=== PATIENT | male | born 1955 | race American Indian/Alaskan Native ===

== ENCOUNTER 2020-06-07 11:53 | Emergency (ER) | payer MEDICARE ==
[2020-06-07 12:48] VITALS: BP 127/95
== END 2020-06-07 13:00 | disposition left against medical advice (07) ==
LOC: ED 11:53
DX: M79.10 Myalgia, unspecified site (principal); Z53.21 Procedure and treatment not carried out due to patient leaving prior to being seen by health care provider

== ENCOUNTER 2020-11-30 05:53 | Observation (INO) | payer MEDICARE ==
[2020-11-30] MEDS ORDERED: MORPHINE 2 MG/1 ML INJ IV ONE (06:02)
[2020-11-30] MEDS ORDERED: NITROGLYCERIN 0.4 MG TAB SUBL SL PRN (06:03)
[2020-11-30] MEDS ORDERED: ONDANSETRON 4 MG/2 ML INJ IV ONE (06:03)
--- NOTE | 2020-11-30 06:41 | XRay Report ---
CHEST 1 VIEW INDICATION / CLINICAL INFORMATION: Chest Pain. FINDINGS: SUPPORT DEVICES: None. HEART / MEDIASTINUM: No significant abnormality. LUNGS / PLEURA: No significant pulmonary or pleural abnormality. No pneumothorax. ADDITIONAL FINDINGS: No significant additional findings. IMPRESSION: 1. No acute findings. Signer Name: Son Segura MD Signed: 11/30/2020 6:37 AM Workstation Name: [id number]
[2020-11-30] MEDS ORDERED: NITROGLYCERIN 2% OINT 1 GM TP ONE (06:49)
[2020-11-30] MEDS ORDERED: ASPIRIN 325 MG TAB PO ONE (06:49)
[2020-11-30] MEDS ORDERED: fentaNYL 100 MCG/2 ML INJ IV ONE (06:49)
--- NOTE | 2020-11-30 06:53 | Emergency Department Report ---
HPI - General Time Seen by Provider: 11/30/20 06:38 - HPI HPI: Room 24 The patient is a 65-year-old male present with a chief complaint of chest pain. Patient states he was awakened around midnight today with sharp substernal chest pain has been intermittent and associated with shortness of breath. Patient denies nausea/vomiting or diaphoresis. Patient currently gets his chest pain score of 8/10. Patient states his last stress test was over 5 years ago and he has never had a cardiac catheterization ED Past Medical Hx - Past Medical History Hx Hypertension: Yes Hx Heart Attack/AMI: Yes Hx GERD: Yes Hx Arthritis: Yes Additional medical history: HIGH CHOLESTEROL - Surgical History Hx Pacemaker: Yes Additional Surgical History: LEFT ROTATOR CUFF REPAIR. RIGHT HIP REPLACEMENT - Family History Family history: no significant - Social History Smoking Status: Former Smoker (None x20 years) Substance Use Type: None (Denies illicit drug use), Alcohol (Occasional) - Medications Home Medications: Home Medications Medication Instructions Recorded Confirmed Last Taken Type HYDROcodone/APAP 5-325 [[place] 1 each PO Q6HR PRN #15 tablet 07/15/14 Unknown Rx 5/325] Ibuprofen [Motrin] 800 mg PO Q8H #30 tablet 07/15/14 Unknown Rx Albuterol Mdi (or & Nicu Only) 2 puff IH QID PRN #1 inhalation 11/03/14 Unknown Rx [ProAir HFA Inhaler] Azithromycin [Zithromax Z-INES] 0 mg PO DAILY #6 tab 11/03/14 Unknown Rx Promethazine /Codeine 5 ml PO Q6H PRN #120 ml 11/03/14 Unknown Rx [Phenergan/Codeine 6.25-10 mg/5 ml] ED Review of Systems ROS: Stated complaint: CHEST PAIN Other details as noted in HPI Constitutional: denies: diaphoresis Eyes: denies: eye pain ENT: denies: throat pain Respiratory: shortness of breath Cardiovascular: chest pain Endocrine: no symptoms reported Gastrointestinal: denies: nausea, vomiting Genitourinary: denies: dysuria Musculoskeletal: denies: back pain Neurological: denies: headache Physical Exam - Physical Exam Vital Signs: Vital Signs 11/30/20 06:10 Pulse Rate 72 Blood Pressure 137/70 Physical Exam: GENERAL: The patient is well-developed well-nourished male lying on stretcher not appearing to be in acute distress. [] HEENT: Normocephalic. Atraumatic. Extraocular motions are intact. Patient has moist mucous membranes. NECK: Supple. Trachea midline CHEST/LUNGS: Clear to auscultation. There is no respiratory distress noted. HEART/CARDIOVASCULAR: Regular. There is no tachycardia. There is no gallop rub or murmur. ABDOMEN: Abdomen is soft, nontender. Patient has normal bowel sounds. There is no abdominal distention. SKIN: There is no rash. There is no edema. There is no diaphoresis. NEURO: The patient is awake, alert, and oriented. The patient is cooperative. The patient has no focal neurologic deficits. The patient has normal speech. GCS 15 MUSCULOSKELETAL: There is no evidence of acute injury. ED Course Vital Signs 11/30/20 06:10 Pulse Rate 72 Blood Pressure 137/70 ED Medical Decision Making - Lab Data Result diagrams: 11/30/20 06:52 11/30/20 06:52 Laboratory Tests 11/30/20 11/30/20 11/30/20 06:52 06:52 06:52 WBC 6.1 RBC 3.93 Hgb 12.9 Hct 37.4 MCV 95 H MCH 33 H MCHC 34 RDW 12.5 L Plt Count 191 Lymph % (Auto) 34.1 [place] % (Auto) 8.9 H Eos % (Auto) 0.9 Baso % (Auto) 0.4 Lymph # (Auto) 2.1 [place] # (Auto) 0.5 Eos # (Auto) 0.1 Baso # (Auto) 0.0 Seg Neutrophils % 55.7 Seg Neutrophils # 3.4 PT 12.6 INR 0.89 APTT 23.5 L Sodium 134 L Potassium 4.0 Chloride 96.5 L Carbon Dioxide 24 Anion Gap 18 BUN 19 Creatinine 1.0 Estimated GFR > 60 BUN/Creatinine Ratio 19 Glucose 407 H Calcium 8.6 Total Bilirubin 0.20 AST 21 ALT 22 Alkaline Phosphatase 130 H Troponin T < 0.010 Total Protein 7.0 Albumin 3.8 L Albumin/Globulin Ratio 1.2 - EKG Data -: EKG Interpreted by In EKG shows normal: sinus rhythm Rate: normal - EKG Data When compared to previous EKG there are: previous EKG unavailable Interpretation: other (EKG goes from sinus to paced rhythm) - Radiology Data Radiology results: report reviewed (Chest x-ray), image reviewed (Chest x-ray) interpreted by me: Chest x-ray-no definite focal infiltrates, no pneumothorax. [facility] [address] [place] [address] XRay Report Signed Patient: JIM SALAZAR MR#: [id number] : 1955 Acct:[id number] Age/Sex: 65 / M ADM Date: 11/30/20 Loc: ED Attending Dr: Ordering Physician: MARSHA AGUIAR MD Date of Service: 11/30/20 Procedure(s): XR chest 1V ap Accession Number(s): [id number] cc: MARSHA AGUIAR MD Fluoro Time In Minutes: CHEST 1 VIEW INDICATION / CLINICAL INFORMATION: Chest Pain. FINDINGS: SUPPORT DEVICES: None. HEART / MEDIASTINUM: No significant abnormality. LUNGS / PLEURA: No significant pulmonary or pleural abnormality. No pneumothorax. ADDITIONAL FINDINGS: No significant additional findings. IMPRESSION: 1. No acute findings. Signer Name: Son Segura MD Signed: 11/30/2020 6:37 AM Workstation Name: [id number] Transcribed By: Dictated By: Son Segura MD Electronically Authenticated By: Son Segura MD Signed Date/Time: 11/30/20636 DD/ 5 TD/TT: Print Cancel - Differential Diagnosis ACS, pericarditis, GERD Critical care attestation.: If time is entered above; I have spent that time in minutes in the direct care of this critically ill patient, excluding procedure time. ED Disposition Clinical Impression: Chest pain Disposition: ADMITTED INPATIENT Is pt being admited?: Yes Does the pt Need Aspirin: Yes Condition: Fair Instructions: Nonspecific Chest Pain, Adult Time of Disposition: 08:14 (Hospitalist notified (Dr Frye)) Heart Score - HEART Score History: Moderately suspicious EKG: Non-specific Age: > 65 Risk factors: > 3 risk factors or hx of atherosclerotic disease Troponin: < normal limit HEART Score: 6 - EKG Read Time Time EKG Completed: 06:09 EKG Read Time: 06:10
[2020-11-30 07:10] LABS: Basophils % (Auto) 0.4 % (0.0-1.8); Eosinophils # (Auto) 0.1 K/mm3 (0.0-0.4); Eosinophils % (Auto) 0.9 % (0.0-4.3); Hematocrit 37.4 % (35.5-45.6); Hemoglobin 12.9 gm/dl (11.8-15.2); Lymphocytes # (Auto) 2.1 K/mm3 (1.2-5.4); Lymphocytes % (Auto) 34.1 % (13.4-35.0); Mean Corpuscular HGB Conc 34 % (32-34); Mean Corpuscular Volume 95 fl (84-94); Monocytes # (Auto) 0.5 K/mm3 (0.0-0.8); Monocytes % (Auto) 8.9 % (0.0-7.3); Platelet Count 191 K/mm3 (140-440); Red Blood Count 3.93 M/mm3 (3.65-5.03); Red Cell Distribution Width 12.5 % (13.2-15.2)
[2020-11-30 07:34] LABS: Alanine Aminotransferase 22 units/L (7-56); Albumin 3.8 g/dL (3.9-5); BUN/Creatinine Ratio 19; Blood Urea Nitrogen 19 mg/dL (9-20); Calcium 8.6 mg/dL (8.4-10.2); Hemolysis Index 12
[2020-11-30 07:47] LABS: INR 0.89 (0.87-1.13)
[2020-11-30 07:48] LABS: Partial Thromboplastin Time 23.5 Sec. (24.2-36.6)
--- NOTE | 2020-11-30 08:35 | Electrocardiograph Report ---
[facility] Test Date: 2020-11-30 Test Time: 06:09:30 Pat Name: JIM SALAZAR Department: Room: Gender: M Trouble Dispatcher: BREONNA : 1955 Requested By: MARSHA AGUIAR Order Number: [id number] Reading MD: Esdras Akhtar Measurements Intervals [place] Rate: 65 P: MT: QRS: 55 QRSD: 86 T: -7 QT: 446 QTc: 456 Interpretive Statements Afib/flut and V-paced complexes No previous ECG available for comparison Electronically Signed On 11-30-2020 8:35:29 EDT by Esdras Akhtar
[2020-11-30] MEDS ORDERED: MORPHINE 4 MG/1 ML INJ IV PRN (11:24)
--- NOTE | 2020-11-30 11:39 | History and Physical Report ---
History of Present Illness Date of examination: 11/30/20 Date of admission: 11/30/20 08:50 Chief complaint: chest pain History of present illness: A 65-year-old male with past medical history of CHF, chronic back pain on every 2 months lumbar spinal injection, A. fib [on Eliquis], permanent pacemaker in situ, hypertension, diabetes mellitus type 2, dyslipidemia, GERD, received moderna Covid vaccine, presented to the hospital complaints of chest pain which has been intermittent for 1 month with located in the substernal region, sharp, occurs while eating or drinking with associated odynophagia and dysphagia, /, radiates to the epigastrium and right upper quadrant, relieved by hydrocodone. The pain also occurs whenever he bends down to tie his shoes. He went to see his primary care physician 4 days ago and lab work was done but has not received results yet. He notes that he did not present to hospital before now because he thought he it was GERD but had severe pain last night while eating burger therefore decided to come to ER. He has not been on PPI or antihistamine for some time but cannot see the duration. No associated nausea, vomiting, d iarrhea, constipation, fever, chills. Has shortness of breath only when he is tying his shoes. He has chronic low back pain went to pain clinic yesterday where he was given lumbar spinal injection. In ER, his vitals have been stable. Chest x-ray is negative for acute finding. EKG showed A. fib/flutter, V paced. His lab was significant for sodium of 134, blood glucose of 407, alkaline phosphatase 130. He received aspirin 325 mg p.o. Past History Past Medical History: atrial fib (On oral anticoagulation), diabetes, GERD, heart failure, hypertension, hyperlipidemia, other (Chronic low back pain continue to months lumbar injection. Goes to pain clinic.) Past Surgical History: total hip replacement (Right), Other (Left shoulder surgery. Permanent pacemaker placement.) Social history: other (Quit smoking cigarettes 30 years ago. Occasional 1 bottle of beer while watching the game. Does not use illicit drugs) Family history: diabetes, hypertension, other (His father and 2 brothers had NH.) Medications and Allergies Allergies Allergy/AdvReac Type Severity Reaction Status Date / Time No Known Allergies Allergy Verified 11/03/14 13:59 Home Medications Medication Instructions Recorded Confirmed Last Taken Type HYDROcodone/APAP 5-325 [[place] 1 each PO Q6HR PRN #15 tablet 07/15/14 Unknown Rx 5/325] Ibuprofen [Motrin] 800 mg PO Q8H #30 tablet 07/15/14 Unknown Rx Albuterol Mdi (or & Nicu Only) 2 puff IH QID PRN #1 inhalation 11/03/14 Unknown Rx [ProAir HFA Inhaler] Azithromycin [Zithromax Z-INES] 0 mg PO DAILY #6 tab 11/03/14 Unknown Rx Promethazine /Codeine 5 ml PO Q6H PRN #120 ml 11/03/14 Unknown Rx [Phenergan/Codeine 6.25-10 mg/5 ml] Apixaban [Eliquis] 5 mg PO 11/30/20 Unknown History Carvedilol Phosphate [Carvedilol 10 mg PO 11/30/20 Unknown History ER] Oxycodone HCl/Acetaminophen 10 mg Q8HR PRN 11/30/20 11/30/20 Unknown History [Percocet 10/325 mg] metFORMIN [Glucophage] 500 mg PO BID 11/30/20 11/30/20 Unknown History Active Meds: Active Medications Acetaminophen (Acetaminophen 325 Mg Tab) 650 mg PO Q6H PRN PRN Reason: Pain, Mild (1-3) Aspirin (Aspirin 81 Mg Tab Chew) 81 mg PO QDAY CLAIR Morphine Sulfate (Morphine 4 Mg/1 Ml Inj) 2 mg IV Q5MIN PRN PRN Reason: Chest Pain unrelieved by NTG Pantoprazole Sodium (Pantoprazole 40 Mg Tab) 40 mg PO QDAY CLAIR Sodium Chloride (Sodium Chloride 0.9% 10 Ml Flush Syringe) 10 ml IV PRN PRN PRN Reason: LINE FLUSH Tramadol HCl (Tramadol 50 Mg Tab) 50 mg PO Q6H PRN PRN Reason: Pain, Moderate (4-6) Review of Systems All systems: negative (As in HPI) Exam - Constitutional Vitals: Temp Pulse Resp BP Pulse Ox 98.9 F 64 19 107/88 99 11/30/20 07:15 11/30/20 10:32 11/30/20 10:32 11/30/20 10:32 11/30/20 10:32 General appearance: Present: no acute distress, well-nourished - EENT Eyes: Present: PERRL, EOM intact ENT: hearing intact, clear oral mucosa - Neck Neck: Present: supple, normal ROM - Respiratory Respiratory effort: normal Respiratory: bilateral: CTA - Cardiovascular Rhythm: regularly irregular Heart Sounds: Present: S1 & S2 Details: Pacemaker left shoulder. No gallops, murmurs, rub. - Extremities Extremities: pulses intact, No edema, normal temperature, normal color Peripheral Pulses: within normal limits - Abdominal General gastrointestinal: Present: soft, non-tender, non-distended, normal bowel sounds - Integumentary Integumentary: Present: clear, warm, dry - Musculoskeletal Musculoskeletal: strength equal bilaterally, other (Band-Aid at his sites of spinal injection yesterday.) - Psychiatric Psychiatric: appropriate mood/affect - Neurologic Neurologic: CNII-XII intact, moves all extremities HEART Score - HEART Score EKG: Non-specific Age: > 65 Risk factors: > 3 risk factors or hx of atherosclerotic disease Troponin: Troponin T < 0.010 ng/mL (0.00-0.029) 11/30/20 06:52 Troponin: < normal limit Results - Labs CBC & Chem 7: 11/30/20 06:52 10 06:52 Labs: Laboratory Last Values WBC 6.1 K/mm3 (4.5-11.0) 11/30/20 06:52 RBC 3.93 M/mm3 (3.65-5.03) 11/30/20 06:52 Hgb 12.9 gm/dl (11.8-15.2) 11/30/20 06:52 Hct 37.4 % (35.5-45.6) 11/30/20 06:52 MCV 95 fl (84-94) H 11/30/20 06:52 MCH 33 pg (28-32) H 11/30/20 06:52 MCHC 34 % (32-34) 11/30/20 06:52 RDW 12.5 % (13.2-15.2) L 11/30/20 06:52 Plt Count 191 K/mm3 (140-440) 11/30/20 06:52 Lymph % (Auto) 34.1 % (13.4-35.0) 11/30/20 06:52 [place] % (Auto) 8.9 % (0.0-7.3) H 10/08/21 06:52 Eos % (Auto) 0.9 % (0.0-4.3) 11/30/20 06:52 Baso % (Auto) 0.4 % (0.0-1.8) 11/30/20 06:52 Lymph # (Auto) 2.1 K/mm3 (1.2-5.4) 11/30/20 06:52 [place] # (Auto) 0.5 K/mm3 (0.0-0.8) 11/30/20 06:52 Eos # (Auto) 0.1 K/mm3 (0.0-0.4) 11/30/20 06:52 Baso # (Auto) 0.0 K/mm3 (0.0-0.1) 11/30/20 06:52 Seg Neutrophils % 55.7 % (40.0-70.0) 11/30/20 06:52 Seg Neutrophils # 3.4 K/mm3 (1.8-7.7) 11/30/20 06:52 PT 12.6 Sec. (12.2-14.9) 11/30/20 06:52 INR 0.89 (0.87-1.13) 11/30/20 06:52 APTT 23.5 Sec. (24.2-36.6) L 11/30/20 06:52 Sodium 134 mmol/L (137-145) L 11/30/20 06:52 Potassium 4.0 mmol/L (3.6-5.0) 11/30/20 06:52 Chloride 96.5 mmol/L (98-107) L 11/30/20 06:52 Carbon Dioxide 24 mmol/L (22-30) 11/30/20 06:52 Anion Gap 18 mmol/L 11/30/20 06:52 BUN 19 mg/dL (9-20) 11/30/20 06:52 Creatinine 1.0 mg/dL (0.8-1.3) 11/30/20 06:52 Estimated GFR > 60 ml/min 11/30/20 06:52 BUN/Creatinine Ratio 19 % 11/30/20 06:52 Glucose 407 mg/dL (75-100) H 11/30/20 06:52 Calcium 8.6 mg/dL (8.4-10.2) 11/30/20 06:52 Total Bilirubin 0.20 mg/dL (0.1-1.2) 11/30/20 06:52 AST 21 units/L (5-40) 11/30/20 06:52 ALT 22 units/L (7-56) 11/30/20 06:52 Alkaline Phosphatase 130 units/L (35-129) H 10 06:52 Troponin T < 0.010 ng/mL (0.00-0.029) 11/30/20 06:52 Total Protein 7.0 g/dL (6.3-8.2) 11/30/20 06:52 Albumin 3.8 g/dL (3.9-5) L 11/30/20 06:52 Albumin/Globulin Ratio 1.2 % 11/30/20 06:52 - Imaging and Cardiology EKG: report reviewed Chest x-ray: report reviewed Assessment and Plan Assessment and plan: #1 chest pain most likely atypical chest pain. Patient has odynophagia and dysphagia. Troponin is negative. We will place him observation status. Monitor telemetry. Consult cardiology and GI.. Start aspirin 81 mg daily. Start Protonix 40 mg p.o. daily. Start as needed analgesic. Full liquid diet. Patient will benefit from EGD. #2 diabetes mellitus type 2, uncontrolled. We will hold Metformin. Start Lantus 20 units subcu nightly. Start Humalog sliding scale, Accu-Cheks, hypoglycemia protocol. Check HbA1c. #3 hypertension, controlled. Resume Coreg. #4 chronic A. fib/flutter. Rate is controlled. He has permanent pacemaker in situ. Monitor on telemetry. Resume Coreg. We will hold Eliquis due to possible EGD which patient requires #5 pseudohyponatremia due to hyperglycemia. Corrected sodium is 139. Monitor sodium. #6 chronic low back pain on as needed narcotic analgesics. On every 2 months lumbar spinal injection. Follows up in pain clinic. #7 DVT prophylaxis. Restart subcu Lovenox 30 #8 CODE STATUS is full code.
[2020-11-30] MEDS ORDERED: MORPHINE 2 MG/1 ML INJ ONE (11:40)
[2020-11-30] MEDS ORDERED: ACETAMINOPHEN 325 MG TAB PO PRN (12:00)
[2020-11-30] MEDS ORDERED: traMADol 50 MG TAB PO PRN (12:00)
[2020-11-30] MEDS ORDERED: ASPIRIN 81 MG TAB CHEW ONE (12:10)
[2020-11-30] MEDS: PANTOPRAZOLE 40 MG TAB PO SCH (12:37)
--- NOTE | 2020-11-30 14:39 | Gastroenterology Consultation ---
History of Present Illness - Reason for Consult Consult date: 11/30/20 odynophagia Requesting physician: MARSHA AGUIAR - History of Present Illness This is a pleasant 65-year-old gentleman who reports 2 to 3 weeks of odynophagia dysphagia and chest pain Patient reports last 2 to 3 weeks having dysphagia to solids, stable, duration 2 to 3 weeks, worse with eating solids, better with nothing, associated with mild acid reflux Denies weight loss, has never had endoscopic evaluation Also reports chest pain which is constant midsternum worse with palpation better with nothing - Past Medical History Hx Hypertension: Yes Hx Heart Attack/AMI: Yes Hx GERD: Yes Hx Arthritis: Yes Additional medical history: HIGH CHOLESTEROL - Surgical History Hx Pacemaker: Yes Additional Surgical History: LEFT ROTATOR CUFF REPAIR. RIGHT HIP REPLACEMENT - Family History Family history: no significant - Social History Smoking Status: Former Smoker (None x20 years) Substance Use Type: None (Denies illicit drug use), Alcohol (Occasional) Obtained/updated/reviewed patient's current medications Medications and Allergies Allergies Allergy/AdvReac Type Severity Reaction Status Date / Time No Known Allergies Allergy Verified 11/03/14 13:59 Home Medications Medication Instructions Recorded Confirmed Last Taken Type HYDROcodone/APAP 5-325 [[place] 1 each PO Q6HR PRN #15 tablet 07/15/14 Unknown Rx 5/325] Ibuprofen [Motrin] 800 mg PO Q8H #30 tablet 07/15/14 Unknown Rx Albuterol Mdi (or & Nicu Only) 2 puff IH QID PRN #1 inhalation 11/03/14 Unknown Rx [ProAir HFA Inhaler] Azithromycin [Zithromax Z-INES] 0 mg PO DAILY #6 tab 11/03/14 Unknown Rx Promethazine /Codeine 5 ml PO Q6H PRN #120 ml 11/03/14 Unknown Rx [Phenergan/Codeine 6.25-10 mg/5 ml] Apixaban [Eliquis] 5 mg PO 11/30/20 Unknown History Carvedilol Phosphate [Carvedilol 10 mg PO 11/30/20 Unknown History ER] Oxycodone HCl/Acetaminophen 10 mg Q8HR PRN 11/30/20 11/30/20 Unknown History [Percocet 10/325 mg] metFORMIN [Glucophage] 500 mg PO BID 11/30/20 11/30/20 Unknown History Active Meds: Active Medications Acetaminophen (Acetaminophen 325 Mg Tab) 650 mg PO Q6H PRN PRN Reason: Pain, Mild (1-3) Aspirin (Aspirin 81 Mg Tab Chew) 81 mg PO QDAY [facility] Morphine Sulfate (Morphine 2 Mg/1 Ml Inj) 2 mg IV Q5MIN PRN PRN Reason: Chest Pain unrelieved by NTG Pantoprazole Sodium (Pantoprazole 40 Mg Tab) 40 mg PO QDAY [facility] Last Admin: 11/30/20 12:37 Dose: 40 mg Documented by: Sodium Chloride (Sodium Chloride 0.9% 10 Ml Flush Syringe) 10 ml IV PRN PRN PRN Reason: LINE FLUSH Tramadol HCl (Tramadol 50 Mg Tab) 50 mg PO Q6H PRN PRN Reason: Pain, Moderate (4-6) Review of Systems - Review of Systems All systems: negative (10 Systems reviewed and negative except as mentioned above in the history of present illness) Exam - Constitutional Vital Signs: Temp Pulse Resp BP Pulse Ox 98.9 F 64 19 107/88 99 11/30/20 07:15 11/30/20 10:32 11/30/20 10:32 11/30/20 10:32 11/30/20 10:32 General appearance: no acute distress - EENT Eyes: EOM intact - Neck Neck: supple - Respiratory Respiratory effort: normal - Cardiovascular Rhythm: regular - Integumentary Integumentary: Present: dry - Musculoskeletal Musculoskeletal: normal - Neurologic Neurological: alert and oriented x3 - Psychiatric Psychiatric: appropriate mood/affect - Labs CBC & Chem 7: 11/30/20 06:52 11/30/20 06:52 Lab Results: Laboratory Results - last 24 hr 11/30/20 11/30/20 11/30/20 06:52 06:52 06:52 WBC 6.1 RBC 3.93 Hgb 12.9 Hct 37.4 MCV 95 H MCH 33 H MCHC 34 RDW 12.5 L Plt Count 191 Lymph % (Auto) 34.1 [place] % (Auto) 8.9 H Eos % (Auto) 0.9 Baso % (Auto) 0.4 Lymph # (Auto) 2.1 [place] # (Auto) 0.5 Eos # (Auto) 0.1 Baso # (Auto) 0.0 Seg Neutrophils % 55.7 Seg Neutrophils # 3.4 PT 12.6 INR 0.89 APTT 23.5 L Sodium 134 L Potassium 4.0 Chloride 96.5 L Carbon Dioxide 24 Anion Gap 18 BUN 19 Creatinine 1.0 Estimated GFR > 60 BUN/Creatinine Ratio 19 Glucose 407 H Calcium 8.6 Total Bilirubin 0.20 AST 21 ALT 22 Alkaline Phosphatase 130 H Troponin T < 0.010 Total Protein 7.0 Albumin 3.8 L Albumin/Globulin Ratio 1.2 Assessment and Plan Chest pain appears costochondral in nature not cardiac or GI Regarding dysphagia, stable, associated with heartburn and no current weight loss Therefore, from GI standpoint since patient was able to eat rice while I was talking with him with minimal discomfort he does not require emergency endoscopic evaluation Therefore, he can be discharged on pured consistency diet with close outpatient follow-up as well as pantoprazole 40 mg daily and likely outpatient EGD If however the patient requires continued hospitalization then can proceed with EGD on Thursday - Patient Problems (1) Dysphagia Current Visit: Yes Status: Acute (2) Costochondral chest pain Current Visit: Yes Status: Acute
[2020-11-30] MEDS ORDERED: DEXTROSE 50% IN WATER (25GM) 50 ML SYRINGE IV PRN (14:59)
[2020-11-30] MEDS: MORPHINE 2 MG/1 ML INJ IV PRN ×3 (15:56→23:13)
[2020-11-30] MEDS: INSULIN LISPRO 100 UNIT/ML SUB-Q SCH ×2 (16:56→23:14)
[2020-11-30] MEDS: ENOXAPARIN 40 MG/0.4 ML INJ SUB-Q SCH (23:13)
[2020-11-30] MEDS: carvediloL 12.5 MG TAB PO SCH (23:13)
[2020-11-30] MEDS: INSULIN GLARGINE 100 UNITS/ML SUB-Q SCH (23:14)
[2020-12-01] MEDS: MORPHINE 2 MG/1 ML INJ IV PRN ×3 (04:02→22:04)
--- NOTE | 2020-12-01 10:03 | Consultation ---
History of Present Illness Consult date: 12/01/20 Requesting physician: ARPIT WARREN Consult reason: chest pain History of present illness: For the past 1 week, he has been experiencing odynophagia with solids and liquids. Last night, he claims that after eating a burger, he developed a sharp substernal chest pain which persisted for a while. There was no nausea, v omiting, diaphoresis or dyspnea. He presented to the hospital due to persistence of symptoms. He claims that nitroglycerin gave him a headache. He claims that his presenting complaint is similar to the pain that he has been experiencing for the past 1 week. Past History Past Medical History: atrial fib (On oral anticoagulation), diabetes, hypertension, hyperlipidemia, other (Chronic low back pain continue to months lumbar injection. Goes to pain clinic.) Past Surgical History: total hip replacement (Right), Other (Left rotator cuff repair, PPM implantation) Social history: other (Quit smoking cigarettes 30 years ago. Occasional 1 bottle of beer while watching the game. Does not use illicit drugs) Family history: diabetes, hypertension, other (His father and 2 brothers had PR.) Medications and Allergies Allergies Allergy/AdvReac Type Severity Reaction Status Date / Time No Known Allergies Allergy Verified 11/03/14 13:59 Home Medications Medication Instructions Recorded Confirmed Last Taken Type HYDROcodone/APAP 5-325 [[place] 1 each PO Q6HR PRN #15 tablet 07/15/14 12/01/20 Unknown Rx 5/325] Ibuprofen [Motrin] 800 mg PO Q8H #30 tablet 07/15/14 12/01/20 Unknown Rx Albuterol Mdi (or & Nicu Only) 2 puff IH QID PRN #1 inhalation 11/03/14 12/01/20 Unknown Rx [ProAir HFA Inhaler] Azithromycin [Zithromax Z-INES] 0 mg PO DAILY #6 tab 11/03/14 12/01/20 Unknown Rx Promethazine /Codeine 5 ml PO Q6H PRN #120 ml 11/03/14 12/01/20 Unknown Rx [Phenergan/Codeine 6.25-10 mg/5 ml] Apixaban [Eliquis] 5 mg PO BID 11/30/20 12/01/20 11/29/20 History Carvedilol Phosphate [Carvedilol 10 mg PO QDAY 11/30/20 12/01/20 11/29/20 History ER] Oxycodone HCl/Acetaminophen 10 mg Q8HR PRN 11/30/20 12/01/20 11/29/20 History [Percocet 10/325 mg] metFORMIN [Glucophage] 500 mg PO BID 11/30/20 12/01/20 11/29/20 History Active Meds: Active Medications Acetaminophen (Acetaminophen 325 Mg Tab) 650 mg PO Q6H PRN PRN Reason: Pain, Mild (1-3) Aspirin (Aspirin 81 Mg Tab Chew) 81 mg PO QDAY [facility] Carvedilol (Carvedilol 12.5 Mg Tab) 12.5 mg PO BID [facility] Last Admin: 11/30/20 23:13 Dose: 12.5 mg Documented by: Dextrose (Dextrose 50% In Water (25gm) 50 Ml Syringe) 50 ml IV Q30MIN PRN; Protocol PRN Reason: Hypoglycemia Enoxaparin Sodium (Enoxaparin 40 Mg/0.4 Ml Inj) 40 mg SUB-Q QDAY@2200 [facility]; Protocol Last Admin: 11/30/20 23:13 Dose: 40 mg Documented by: Insulin Glargine (Insulin Glargine 100 Units/Ml) 20 units SUB-Q QHS [facility] Last Admin: 11/30/20 23:14 Dose: 20 units Documented by: Insulin Human Lispro (Insulin Lispro 100 Unit/Ml) 0 unit SUB-Q [facility]; Protocol Last Admin: 11/30/20 23:14 Dose: 4 unit Documented by: Morphine Sulfate (Morphine 2 Mg/1 Ml Inj) 2 mg IV Q5MIN PRN PRN Reason: Chest Pain unrelieved by NTG Last Admin: 12/01/20 08:27 Dose: 2 mg Documented by: Pantoprazole Sodium (Pantoprazole 40 Mg Tab) 40 mg PO QDAY [facility] Last Admin: 11/30/20 12:37 Dose: 40 mg Documented by: Sodium Chloride (Sodium Chloride 0.9% 10 Ml Flush Syringe) 10 ml IV PRN PRN PRN Reason: LINE FLUSH Tramadol HCl (Tramadol 50 Mg Tab) 50 mg PO Q6H PRN PRN Reason: Pain, Moderate (4-6) Review of Systems Constitutional: no fever, no chills Ears, nose, mouth and throat: dysphagia, odynophagia, no ear pain, no ear discharge Cardiovascular: chest pain, no palpitations, no lightheadedness, no shortness of breath, no dyspnea on exertion Respiratory: no cough, no hemoptysis, no shortness of breath Gastrointestinal: no abdominal pain, no nausea, no vomiting, no diarrhea, no constipation Genitourinary Male: no dysuria, no urinary frequency Rectal: no pain, no bleeding Musculoskeletal: no neck stiffness, no neck pain, no myalgias Integumentary: no rash, no pruritis Neurological: no weakness, no parathesias, no numbness Endocrine: no cold intolerance, no heat intolerance Hematologic/Lymphatic: no easy bruising, no easy bleeding Allergic/Immunologic: no urticaria, no wheezing Physical Examination Vital Signs Last Vital Signs Temp 98.1 F 12/01/20 08:10 Pulse 61 12/01/20 08:10 Resp 20 12/01/20 08:10 BP 122/79 12/01/20 08:10 Pulse Ox 100 12/01/20 08:10 General appearance: no acute distress HEENT: Positive: EOMI, Normocephaly, Mucus Membranes Moist Neck: Positive: neck supple, trachea midline Cardiac: Positive: Reg Rate and Rhythm, S1/S2 Lungs: Positive: clear to auscultation Neuro: Positive: Grossly Intact Abdomen: Positive: Soft, Active Bowel Sounds. Negative: Tender Skin: Positive: Clear. Negative: Rash Musculoskeletal: Normal Range of Motion Extremities: Present: normal. Absent: edema Results 11/30/20 06:52 11/30/20 06:52 - Imaging and Cardiology EKG: image reviewed EKG interpretations - Telemetry EKG Rhythm: Atrial Fibrillation - EKG Supraventricular dysrhythmia: atrial fibrillation Pacemaker: ventricular pacing w/capt Assessment and Plan His cardiac status appears stable at this time. He is on Eliquis at home. While he is off oral anticoagulation, utilize therapeutic doses of heparin or Lovenox temporarily. - Patient Problems (1) Atypical chest pain Current Visit: Yes Status: Acute (2) Odynophagia Current Visit: Yes Status: Acute (3) Permanent atrial fibrillation Current Visit: Yes Status: Chronic (4) Presence of permanent cardiac pacemaker Current Visit: Yes Status: Chronic (5) Hypertension Current Visit: Yes Status: Chronic Qualifiers: Hypertension type: primary hypertension Qualified Code(s): I10 - Essential (primary) hypertension (6) Diabetes mellitus Current Visit: Yes Status: Chronic Qualifiers: Diabetes mellitus type: type 2
[2020-12-01] MEDS: PANTOPRAZOLE 40 MG TAB PO SCH (10:31)
[2020-12-01] MEDS: carvediloL 12.5 MG TAB PO SCH ×2 (10:31→21:55)
[2020-12-01] MEDS: ASPIRIN 81 MG TAB CHEW PO SCH (10:31)
[2020-12-01] MEDS: INSULIN LISPRO 100 UNIT/ML SUB-Q SCH ×4 (10:32→21:54)
--- NOTE | 2020-12-01 13:26 | Progress Note ---
Assessment and Plan Assessment and plan: #1 chest pain most likely atypical chest pain. Patient has odynophagia and dysphagia. Troponin is negative. We will place him observation status. Monitor telemetry. Consult cardiology and GI.. Start aspirin 81 mg daily. Start Protonix 40 mg p.o. daily. Start as needed analgesic. Full liquid diet. Patient will benefit from EGD. #2 diabetes mellitus type 2, uncontrolled. We will hold Metformin. Start Lantus 20 units subcu nightly. Start Humalog sliding scale, Accu-Cheks, hypoglycemia protocol. Check HbA1c. #3 hypertension, controlled. Resume Coreg. #4 chronic A. fib/flutter. Rate is controlled. He has permanent pacemaker in situ. Monitor on telemetry. Resume Coreg. We will hold Eliquis due to possible EGD which patient requires #5 pseudohyponatremia due to hyperglycemia. Corrected sodium is 139. Monitor sodium. #6 chronic low back pain on as needed narcotic analgesics. On every 2 months lumbar spinal injection. Follows up in pain clinic. #7 DVT prophylaxis. Restart subcu Lovenox 30 #8 CODE STATUS is full code. 12/01/20 Patient with chest pain, pain on swallowing. I discussed with Cardiology. Obtain serial Troponins. keep overnight to re-eval in am. History Interval history: Chest pain Pain on swallowing Hospitalist Physical - Physical exam Narrative exam: Gen: Not in acute distress, lying in bed HEENT: Normocephalic, atraumatic Neck: Supple, no JVD Lungs: Clear to auscultation bilat Heart: S1 and S2 reg, no murmurs, rubs or gallop Abd:soft, non-tender, non distended, normal bowel sounds Ext: No edema, clubbing or cyanosis Neuro: Awake, alert, oriented X 3, moves all extremities - Constitutional Vitals: Temp Pulse Resp BP Pulse Ox 98.3 F 61 20 134/87 100 12/01/20 11:45 12/01/20 11:45 12/01/20 11:45 12/01/20 11:45 12/01/20 11:45 General appearance: Present: no acute distress HEART Score - HEART Score EKG: Non-specific Age: > 65 Risk factors: > 3 risk factors or hx of atherosclerotic disease Troponin: Troponin T < 0.010 ng/mL (0.00-0.029) 11/30/20 06:52 Troponin: < normal limit Results - Labs CBC & Chem 7: 11/30/20 06:52 10 06:52 Labs: Laboratory Last Values WBC 6.1 K/mm3 (4.5-11.0) 11/30/20 06:52 RBC 3.93 M/mm3 (3.65-5.03) 11/30/20 06:52 Hgb 12.9 gm/dl (11.8-15.2) 11/30/20 06:52 Hct 37.4 % (35.5-45.6) 11/30/20 06:52 MCV 95 fl (84-94) H 11/30/20 06:52 MCH 33 pg (28-32) H 11/30/20 06:52 MCHC 34 % (32-34) 11/30/20 06:52 RDW 12.5 % (13.2-15.2) L 11/30/20 06:52 Plt Count 191 K/mm3 (140-440) 11/30/20 06:52 Lymph % (Auto) 34.1 % (13.4-35.0) 11/30/20 06:52 [place] % (Auto) 8.9 % (0.0-7.3) H 11/30/20 06:52 Eos % (Auto) 0.9 % (0.0-4.3) 11/30/20 06:52 Baso % (Auto) 0.4 % (0.0-1.8) 11/30/20 06:52 Lymph # (Auto) 2.1 K/mm3 (1.2-5.4) 11/30/20 06:52 [place] # (Auto) 0.5 K/mm3 (0.0-0.8) 11/30/20 06:52 Eos # (Auto) 0.1 K/mm3 (0.0-0.4) 11/30/20 06:52 Baso # (Auto) 0.0 K/mm3 (0.0-0.1) 11/30/20 06:52 Seg Neutrophils % 55.7 % (40.0-70.0) 11/30/20 06:52 Seg Neutrophils # 3.4 K/mm3 (1.8-7.7) 11/30/20 06:52 PT 12.6 Sec. (12.2-14.9) 11/30/20 06:52 INR 0.89 (0.87-1.13) 11/30/20 06:52 APTT 23.5 Sec. (24.2-36.6) L 11/30/20 06:52 Sodium 134 mmol/L (137-145) L 11/30/20 06:52 Potassium 4.0 mmol/L (3.6-5.0) 11/30/20 06:52 Chloride 96.5 mmol/L (98-107) L 11/30/20 06:52 Carbon Dioxide 24 mmol/L (22-30) 11/30/20 06:52 Anion Gap 18 mmol/L 11/30/20 06:52 BUN 19 mg/dL (9-20) 11/30/20 06:52 Creatinine 1.0 mg/dL (0.8-1.3) 11/30/20 06:52 Estimated GFR > 60 ml/min 11/30/20 06:52 BUN/Creatinine Ratio 19 % 11/30/20 06:52 Glucose 407 mg/dL (75-100) H 11/30/20 06:52 POC Glucose 188 mg/dL (70-105) H 12/01/20 12:14 Hemoglobin A1c 10.3 % (4-6) H 11/30/20 06:52 Calcium 8.6 mg/dL (8.4-10.2) 11/30/20 06:52 Total Bilirubin 0.20 mg/dL (0.1-1.2) 11/30/20 06:52 AST 21 units/L (5-40) 11/30/20 06:52 ALT 22 units/L (7-56) 11/30/20 06:52 Alkaline Phosphatase 130 units/L (35-129) H 11/30/20 06:52 Troponin T < 0.010 ng/mL (0.00-0.029) 11/30/20 06:52 Total Protein 7.0 g/dL (6.3-8.2) 11/30/20 06:52 Albumin 3.8 g/dL (3.9-5) L 11/30/20 06:52 Albumin/Globulin Ratio 1.2 % 11/30/20 06:52 Sandoval/IV: Voiding Method Urinal Active Medications - Current Medications Current Medications: Generic Name Dose Route Start Last Admin Trade Name Freq PRN Reason Stop Dose Admin Acetaminophen 650 mg 11/30/20 12:00 Acetaminophen 325 Mg Tab PO Q6H PRN Pain, Mild (1-3) Aspirin 81 mg 12/01/20 10:00 12/01/20 10:31 Aspirin 81 Mg Tab Chew PO 81 mg QDAY [facility]IR Administration Carvedilol 12.5 mg 11/30/20 22:00 12/01/20 10:31 Carvedilol 12.5 Mg Tab PO 12.5 mg BID CLAIR Administration Dextrose 50 ml 11/30/20 14:59 Dextrose 50% In Water (25gm) 50 Ml Syringe IV Q30MIN PRN Hypoglycemia Protocol Enoxaparin Sodium 40 mg 11/30/20 22:00 11/30/20 23:13 Enoxaparin 40 Mg/0.4 Ml Inj SUB-Q 40 mg QDAY@2200 [facility] Administration Protocol Insulin Glargine 20 units 11/30/20 22:00 11/30/20 23:14 Insulin Glargine 100 Units/Ml SUB-Q 20 units QHS [facility]IR Administration Insulin Human Lispro 0 unit 11/30/20 16:30 12/01/20 10:32 Insulin Lispro 100 Unit/Ml SUB-Q 6 unit ACHS CLAIR Administration Protocol Morphine Sulfate 2 mg 11/30/20 12:30 12/01/20 08:27 Morphine 2 Mg/1 Ml Inj IV 2 mg Q5MIN PRN Administration Chest Pain unrelieved by NTG Pantoprazole Sodium 40 mg 11/30/20 13:00 12/01/20 10:31 Pantoprazole 40 Mg Tab PO 40 mg QDAY [facility]IR Administration Sodium Chloride 10 ml 11/30/20 12:00 Sodium Chloride 0.9% 10 Ml Flush Syringe IV PRN PRN LINE FLUSH Tramadol HCl 50 mg 11/30/20 12:00 Tramadol 50 Mg Tab PO Q6H PRN Pain, Moderate (4-6) Nutrition/Malnutrition Assess - Dietary Evaluation Nutrition/Malnutrition Findings: Nutrition Notes Start: 11/30/20 16:23 Freq: Status: Active Protocol: Document 11/30/20 16:24 GB (Rec: 11/30/20 16:38 GB [id number]) Nutrition Notes Need for Assessment generated from: MD Order,Education Initial or Follow up Assessment Current Diagnosis Heart Failure Other Pertinent Diagnosis chronic back pain, Afib, HTN, DM2, GERD Current Diet Cardiac Labs/Tests 11/30: glucose 407, Na 134, A1c 10.3, AlkP 130 Pertinent Medications reviewed Height 6 ft 2 in Weight 97.522 kg [place] Body Weight (kg) 86.36 BMI 27.6 Weight change and time frame admission weight recorded Weight Status Appropriate Subjective/Other Information Consult for nutrition therapy education Pt is new: no PO intakes recorded at time of assessment Percent of energy/protein needs met: PO intake of meals at 75% or greater will meet 75% or greater of estimated energy needs. Burn Absent Trauma Absent GI Symptoms None Food Allergy No Skin Integrity/Comment No complications recorded Current % PO Other Minimum of two criteria No #1 Nutrition Diagnosis Food and nutrition-related knowledge deficit Etiology CHF As Evidenced by Signs and Symptoms Consult for nutrition therapy education Is patient on ventilator? No Is Patient Ambulatory and/or Out of Bed Yes REE-([employer]-ambulatory/OOB) [ 2378.961 NUTR.MSJOOB] Kcal/Kg value to use for calculation 22 Approximate Energy Requirements Using 2145 kcal/Kg Calculation Used for Recommendations Kcal/kg Additional Notes Protein: 0.8-1 g/kg @ 97k -97g Fluids: 1 ml/kcal or per MD Nutrition Intervention Change Diet Order: continue Nutrition Support: n/a Add Supplement/Snack (indicate name/kcal n/a /protein ) Education Handouts Provided Low Sodium nutrition therapy education to be provided Goal #1 PO intake of meals to be 75% or greater daily for LOS Goal #2 Low Sodium nutrition therapy education to be provided at f/ u post admission to assigned room Follow-Up By: 12/05/20 Additional Comments Provide Low Na nutrition therapy education at f/u
--- NOTE | 2020-12-01 18:07 | Gastroenterology Progress Note ---
Assessment and Plan GI: pt w/ atypical chest pain along w/ dysphagia/odynophagia - continue PPI qd - await further Cardiology input and workup - possible EGD (?Thursday) based on progress - will follow Subjective Date of service: 12/01/20 Interval history: - pt reports some chest pain overnight but feel swallowing better. Denies other complaints. Objective - Constitutional Vitals: Temp Pulse Resp BP Pulse Ox 97.9 F 64 20 121/90 96 12/01/20 16:27 12/01/20 16:27 12/01/20 16:27 12/01/20 16:27 12/01/20 16:27 General appearance: no acute distress - EENT Eyes: PERRL - Respiratory Respiratory: bilateral: CTA - Gastrointestinal General gastrointestinal: Present: soft, non-tender, non-distended - Labs CBC & Chem 7: 11/30/20 06:52 11/30/20 06:52 Labs: Laboratory Results - last 24 hr 11/30/20 12/01/20 12/01/20 22:28 08:15 12:14 POC Glucose 209 H 297 H 188 H Troponin T 12/01/20 12/01/20 15:38 16:50 POC Glucose 211 H Troponin T < 0.010
[2020-12-01] MEDS: INSULIN GLARGINE 100 UNITS/ML SUB-Q SCH (21:54)
[2020-12-01] MEDS: DOCUSATE SODIUM 100 MG CAP PO SCH (21:55)
[2020-12-01] MEDS: ENOXAPARIN 40 MG/0.4 ML INJ SUB-Q SCH (22:07)
[2020-12-02 09:59] VITALS: BP 126/80
[2020-12-02] MEDS: INSULIN LISPRO 100 UNIT/ML SUB-Q SCH ×2 (10:20→11:52)
[2020-12-02] MEDS: ASPIRIN 81 MG TAB CHEW PO SCH (10:21)
[2020-12-02] MEDS: DOCUSATE SODIUM 100 MG CAP PO SCH (10:21)
[2020-12-02] MEDS: PANTOPRAZOLE 40 MG TAB PO SCH (10:21)
[2020-12-02] MEDS: carvediloL 12.5 MG TAB PO SCH (10:21)
--- NOTE | 2020-12-02 12:02 | Progress Note ---
Assessment and Plan OK to DC cardiac-smalls. 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 Resume Eliquis as before. - Patient Problems (1) Atypical chest pain Current Visit: Yes Status: Acute (2) Odynophagia Current Visit: Yes Status: Acute (3) Permanent atrial fibrillation Current Visit: Yes Status: Chronic (4) Presence of permanent cardiac pacemaker Current Visit: Yes Status: Chronic (5) Hypertension Current Visit: Yes Status: Chronic Qualifiers: Hypertension type: primary hypertension Qualified Code(s): I10 - Essential (primary) hypertension (6) Diabetes mellitus Current Visit: Yes Status: Chronic Qualifiers: Diabetes mellitus type: type 2 Subjective Date of service: 12/02/20 Principal diagnosis: Atypical chest pain Interval history: No more chest pain. Feels fine. Objective Vital Signs Temp Pulse Resp BP Pulse Ox 12/02/20 10:00 63 97 12/02/20 07:43 99.2 F 61 20 126/80 97 12/02/20 04:24 98.3 F 60 20 106/59 97 12/01/20 23:46 98.3 F 61 20 135/91 98 12/01/20 22:00 61 97 12/01/20 21:55 64 121/90 12/01/20 21:33 98 12/01/20 21:27 99.0 F 62 20 139/92 98 12/01/20 16:27 97.9 F 64 20 121/90 96 - Physical Examination General: No Apparent Distress HEENT: Positive: EOMI, Normocephaly, Mucus Membranes Moist Neck: Positive: neck supple, trachea midline Cardiac: Positive: Reg Rate and Rhythm, Irregularly Regular, irregularly irregular, S1/S2 Lungs: Positive: clear to auscultation Neuro: Positive: Grossly Intact Abdomen: Positive: Soft, Active Bowel Sounds. Negative: Tender Skin: Positive: Clear. Negative: Rash Musculoskeletal: Normal Range of Motion Extremities: Present: normal. Absent: edema - Imaging and Cardiology EKG: image reviewed - Telemetry EKG Rhythm: Paced (with underlying AF) Pacemaker: ventricular pacing w/capt
--- NOTE | 2020-12-02 12:12 | Discharge Summary ---
Providers - Providers Date of Admission: 11/30/20 08:50 Date of discharge: 12/02/20 Attending physician: MAG CYR 11/30/20 Consult to Cardiac Rehabilitation [CONS] Routine Reason For Exam: Phase I 11/30/20 11:23 Consult to Cardiology [CONS] Routine Consulting Provider: CAROLYNN ALVARADO Reason For Exam: chest pain 11/30/20 11:31 Consult to Physician [CONS] Routine Comment: Consulting Provider: SHANA FIELD Physician Instructions: Reason For Exam: Dysphagia and odynophagia 11/30/20 14:59 Consult to Dietitian/Nutrition [CONS] Routine Physician Instructions: Reason For Exam: Reason for Consult: Diet education 12/01/20 09:14 Consult to Physician [CONS] Routine Comment: Consulting Provider: FELICITY DARNELL Physician Instructions: Reason For Exam: Chest pain Primary care physician: PRESCHOOL AIDE Hospitalization Condition: Fair Hospital course: Patient is 65-year-old male with past medical history of CHF, chronic back pain on every 2 months lumbar spinal injection, A. fib [on Eliquis], permanent pacemaker in situ, hypertension, diabetes mellitus type 2, dyslipidemia, GERD, received moderna Covid vaccine, presented to the hospital complained of chest pain which has been intermittent for 1 month with located in the substernal region, sharp, occurs while eating or drinking with associated odynophagia and dysphagia, 8/10, radiates to the epigastrium and right upper quadrant, relieved by hydrocodone. The pain also occurs whenever he bends down to tie his shoes. He went to see his primary care physician 4 days prior to presentation and lab work was done but has not received results yet. No associated nausea, vomiting, diarrhea, constipation, fever, chills. He was seen and evaluated in ED and admitted. He was evaluated by Cardiology and GI. Cardiology stated pain most likley GI related and recommended patient can discharge home. He was subsequently discharged home to follow with GI as outpatient. #1 chest pain most likely atypical chest pain. Patient has odynophagia and dysphagia. Troponin is negative. We will place him observation status. Monitor telemetry. Consult cardiology and GI.. Start aspirin 81 mg daily. Start Protonix 40 mg p.o. daily. Start as needed analgesic. Full liquid diet. Patient will benefit from EGD. #2 diabetes mellitus type 2, uncontrolled. We will hold Metformin. Start Lantus 20 units subcu nightly. Start Humalog sliding scale, Accu-Cheks, hypoglycemia protocol. Check HbA1c. #3 hypertension, controlled. Resume Coreg. #4 chronic A. fib/flutter. Rate is controlled. He has permanent pacemaker in situ. Monitor on telemetry. Resume Coreg. We will hold Eliquis due to possible EGD which patient requires #5 pseudohyponatremia due to hyperglycemia. Corrected sodium is 139. Monitor sodium. #6 chronic low back pain on as needed narcotic analgesics. On every 2 months lumbar spinal injection. Follows up in pain clinic. #7 DVT prophylaxis. Restart subcu Lovenox 30 #8 CODE STATUS is full code. 12/01/20 Patient with chest pain, pain on swallowing. I discussed with Cardiology. Obtain serial Troponins. keep overnight to re-eval in am. 12/02/20 Patient discharged home to follow with GI as outpatient for EGD. Disposition: 01 HOME / SELF CARE / HOMELESS Final Discharge Diagnosis (Prints w/discharge instructions): 1.Chest pain. 2.Pain on swallowing Time spent for discharge: 36 mins - Discharge Diagnoses (1) Chest pain Status: Acute (2) Odynophagia Status: Acute (3) Diabetes mellitus Status: Chronic Qualifiers: Diabetes mellitus type: type 2 (4) Hypertension Status: Chronic Qualifiers: Hypertension type: primary hypertension Qualified Code(s): I10 - Essential (primary) hypertension (5) Permanent atrial fibrillation Status: Chronic (6) Presence of permanent cardiac pacemaker Status: Chronic Core Measure Documentation - Palliative Care Palliative Care/ Comfort Measures: Not Applicable - Core Measures Any of the following diagnoses?: none Exam - Constitutional Vitals: Temp Pulse Resp BP Pulse Ox 99.2 F 63 20 126/80 97 12/02/20 07:43 12/02/20 10:00 12/02/20 07:43 12/02/20 07:43 12/02/20 10:00 Plan Activity: other (No strenous activity until cleared by cardiology) Diet: low fat, low cholesterol, low salt, diabetic, other (Pureed diet) Plan of Treatment: 1.Follow up with PCP in 1 week. 2.Follow up with Engineering Professor in 1 week 3.Follow up with PAVEL Gray in 2-3 days to arrange EGD Follow up with: CAROLYNN ALVARADO MD [Staff Physician] - 7 Days SHANA FIELD MD [Staff Physician] - 7 Days PRIMARY CARE, [Primary Care Provider] - 7 Days Forms: Discharge Signature Page Prescriptions: Pantoprazole [Protonix TAB] 40 mg PO QDAY #30 tablet
--- NOTE | 2020-12-02 15:42 | Gastroenterology Progress Note ---
Assessment and Plan GI: pt w/ atypical chest pain along w/ dysphagia/odynophagia - continue PPI qd -pt already has outpt egd/colon scheduled - ok to dc, will sign off Subjective Date of service: 12/02/20 Principal diagnosis: Atypical chest pain Interval history: - no GI complaints, would like to go home Objective - Constitutional Vitals: Temp Pulse Resp BP Pulse Ox 99.2 F 63 20 126/80 97 12/02/20 07:43 12/02/20 10:00 12/02/20 07:43 12/02/20 07:43 12/02/20 10:00 General appearance: no acute distress - EENT Eyes: PERRL - Respiratory Respiratory: bilateral: CTA - Gastrointestinal General gastrointestinal: Present: soft, non-tender, non-distended Rectal Exam: deferred - Labs CBC & Chem 7: 11/30/20 06:52 11/30/20 06:52 Labs: Laboratory Results - last 24 hr 12/01/20 12/01/20 12/01/20 15:38 16:50 20:49 POC Glucose 211 H Troponin T < 0.010 < 0.010 12/01/20 12/02/20 12/02/20 21:26 07:46 11:38 POC Glucose 177 H 129 H 241 H Troponin T
--- NOTE | 2020-12-03 10:53 | Electrocardiograph Report ---
[facility] Test Date: 2020-12-01 Test Time: 07:11:21 Pat Name: JIM SALAZAR Department: Room: A456 1 Gender: M Case Coordinator: LAURA : 1955 Requested By: ARPIT WARREN Order Number: [id number] Reading MD: Mendez Campbell Measurements Intervals [place]essel Rate: 71 P: CO: QRS: 13 QRSD: 97 T: -14 QT: 434 QTc: 457 Interpretive Statements Atrial-sensed ventricular-paced complexes afib Compared to ECG 11/30/2020 06:09:30 Atrial fibrillation no longer present Electronically Signed On 12-03-2020 10:53:09 EDT by Mendez Campbell
--- NOTE | 2020-12-03 10:56 | Electrocardiograph Report ---
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
== END 2020-12-02 15:58 | disposition home or self-care (01) ==
LOC: ED 05:53 → 4A 08:50
PROVIDERS: ADMIT Internal Medicine; ATTEND Internal Medicine
DX: R07.89 Other chest pain (principal); I11.0 Hypertensive heart disease with heart failure; I50.9 Heart failure, unspecified; E11.65 Type 2 diabetes mellitus with hyperglycemia; E87.1 Hypo-osmolality and hyponatremia; R13.10 Dysphagia, unspecified; I48.20 Chronic atrial fibrillation, unspecified; G89.29 Other chronic pain; E78.00 Pure hypercholesterolemia, unspecified; M54.50 Low back pain, unspecified; K21.9 Gastro-esophageal reflux disease without esophagitis; E78.5 Hyperlipidemia, unspecified; Z96.641 Presence of right artificial hip joint; Z79.899 Other long term (current) drug therapy; Z98.890 Other specified postprocedural states; Z87.891 Personal history of nicotine dependence; Z79.84 Long term (current) use of oral hypoglycemic drugs; Z79.82 Long term (current) use of aspirin; Z95.0 Presence of cardiac pacemaker
CPT/HCPCS: 36415; 71045; 80053; 82962; 83036; 84484; 85025; 85610; 85730; 93005; 93306; 94760; 96372; 96374; 96375; 96376; 99285; G0378; J1650; J2270; J2405; J3010; J1815

== ENCOUNTER 2021-04-28 10:51 | Emergency (ER) | payer MEDICARE ==
[2021-04-28 11:03] VITALS: BP 120/79
--- NOTE | 2021-04-28 12:50 | Emergency Department Report ---
ED General Adult HPI - General Chief complaint: Skin/Abscess/Foreign Body Stated complaint: NEED RING CUT OFF Time Seen by Provider: 04/28/21 11:12 Source: patient Mode of arrival: Ambulatory Limitations: No Limitations - History of Present Illness Initial comments: This is a 65-year-old male nontoxic, well nourished in appearance, no acute signs of distress presents to the ED with c/o unable to remove ring from left index finger. Patient denies any injuries or trauma. Patient denies any numbness, tingling, fever, chills, nausea, vomiting, headache, stiff neck. Patient stated is been there for several weeks. -: week(s) Severity scale (0 -10): 3 Quality: aching Consistency: constant Improves with: none Worsens with: none Associated Symptoms: denies other symptoms. denies: confusion, chest pain, cough, diaphoresis, fever/chills, headaches, loss of appetite, malaise, nausea/vomiting, rash, seizure, shortness of breath, syncope, weakness - Related Data Home Medications Medication Instructions Recorded Confirmed Last Taken Apixaban [Eliquis] 5 mg PO BID 11/30/20 12/01/20 11/29/20 Carvedilol Phosphate [Carvedilol 10 mg PO QDAY 11/30/20 12/01/20 11/29/20 ER] metFORMIN [Glucophage] 500 mg PO BID 11/30/20 12/01/20 11/29/20 Previous Rx's Medication Instructions Recorded Last Taken Type Albuterol Mdi (or & Nicu Only) 2 puff IH QID PRN #1 inhalation 11/03/14 Unknown Rx [ProAir HFA Inhaler] Pantoprazole [Protonix TAB] 40 mg PO QDAY #30 tablet 12/02/20 Unknown Rx Allergies Allergy/AdvReac Type Severity Reaction Status Date / Time No Known Allergies Allergy Verified 11/03/14 13:59 ED Review of Systems ROS: Stated complaint: NEED RING CUT OFF Other details as noted in HPI Comment: All other systems reviewed and negative Constitutional: denies: chills, fever Eyes: denies: eye pain, eye discharge, vision change ENT: denies: ear pain, throat pain Respiratory: denies: cough, shortness of breath, wheezing Cardiovascular: denies: chest pain, palpitations Endocrine: no symptoms reported Gastrointestinal: denies: abdominal pain, nausea, diarrhea Genitourinary: denies: urgency, dysuria Musculoskeletal: denies: back pain, joint swelling, arthralgia Skin: denies: rash, lesions Neurological: denies: headache, weakness, paresthesias Psychiatric: denies: anxiety, depression Hematological/Lymphatic: denies: easy bleeding, easy bruising ED Past Medical Hx - Past Medical History Hx Hypertension: Yes Hx Heart Attack/AMI: Yes Hx Congestive Heart Failure: Yes Hx Diabetes: Yes Hx GERD: Yes Hx Arthritis: Yes Hx Asthma: Yes Hx COPD: No Additional medical history: HIGH CHOLESTEROL - Surgical History Hx Pacemaker: Yes Additional Surgical History: LEFT ROTATOR CUFF REPAIR. RIGHT HIP REPLACEMENT - Social History Smoking Status: Former Smoker - Medications Home Medications: Home Medications Medication Instructions Recorded Confirmed Last Taken Type Albuterol Mdi (or & Nicu Only) 2 puff IH QID PRN #1 inhalation 11/03/14 12/01/20 Unknown Rx [ProAir HFA Inhaler] Apixaban [Eliquis] 5 mg PO BID 11/30/20 12/01/20 11/29/20 History Carvedilol Phosphate [Carvedilol 10 mg PO QDAY 11/30/20 12/01/20 11/29/20 History ER] metFORMIN [Glucophage] 500 mg PO BID 11/30/20 12/01/20 11/29/20 History Pantoprazole [Protonix TAB] 40 mg PO QDAY #30 tablet 12/02/20 Unknown Rx ED Physical Exam - General Limitations: No Limitations General appearance: alert, in no apparent distress - Head Head exam: Present: atraumatic, normocephalic - Eye Eye exam: Present: normal appearance - Neck Neck exam: Present: full ROM - Respiratory Respiratory exam: Absent: respiratory distress - Cardiovascular Cardiovascular Exam: Present: regular rate - Extremities Exam Extremities exam: Present: normal inspection, full ROM, normal capillary refill, other (gold ring present to left indx finger. ). Absent: tenderness, joint swelling - Back Exam Back exam: Present: normal inspection - Neurological Exam Neurological exam: Present: alert, oriented X3 - Psychiatric Psychiatric exam: Present: normal affect, normal mood - Skin Skin exam: Present: warm, dry, intact, normal color. Absent: rash ED Course Vital Signs 04/28/21 11:02 Temperature 98.1 F Pulse Rate 76 Respiratory 18 Rate Blood Pressure 120/79 O2 Sat by Pulse 100 Oximetry - Reevaluation(s) Reevaluation #1: 04/28/21 12:52 Patient is speaking in full sentences with no signs of distress noted. - Procedure Description Procedures done: I used a a ring cutter and was able to successfully cut the ring down the middle. I then used a hemostat to open the ring and removed it from the finger. Patient tolerated well. No crum, abrasions or lesions. No injuries noted after procedure. ED Medical Decision Making - Medical Decision Making 65-year-old male that presents with removal. Patient stable and was examined by me. Physical exam otherwise is unremarkable. The ring has been successfully removed and patient tolerated well with no complications of procedure. Patient was instructed to follow-up with a primary care doctor in 3-5 days or if symptoms worsen and continue return to emergency room as soon as possible. At time of discharge, the patient does not seem toxic or ill in appearance. No acute signs of distress noted. Patient agrees to discharge treatment plan of care. No further questions noted by the patient. Critical care attestation.: If time is entered above; I have spent that time in minutes in the direct care of this critically ill patient, excluding procedure time. ED Disposition Clinical Impression: Superficial foreign body of finger of left hand Qualifiers: Encounter type: initial encounter Qualified Code(s): S60.459A - Superficial foreign body of unspecified finger, initial encounter Disposition: HOME / SELF CARE / HOMELESS Is pt being admited?: No Does the pt Need Aspirin: No Condition: Stable Additional Instructions: Follow-up with a primary care doctor in 3-5 days or if symptoms worsen and continue return to emergency room as soon as possible. Referrals: AHSAN ALBERTO RN [Primary Care Provider] - 3-5 Days Time of Disposition: 12:56
== END 2021-04-28 20:06 | disposition left against medical advice (07) ==
LOC: ED 10:51
DX: S60.451A Superficial foreign body of left index finger, initial encounter (principal); I10 Essential (primary) hypertension; E11.9 Type 2 diabetes mellitus without complications; J45.909 Unspecified asthma, uncomplicated; Z87.891 Personal history of nicotine dependence; Y93.89 Activity, other specified; X58.XXXA Exposure to other specified factors, initial encounter; Y92.89 Other specified places as the place of occurrence of the external cause; Y99.8 Other external cause status
CPT/HCPCS: 99282